=== PATIENT | female | born 1965 | race Hispanic/Latino ===

== ENCOUNTER 2017-06-21 02:57 | Emergency (ER) | payer MEDICAID ==
[~2017-06-21 02:57] MED LIST: DOXY100C2 PO; LANS15CA17 PO
[2017-06-21 03:26] LABS: BASOPHILS % (AUTO) 0.8 % (0.0-5.0); EOSINOPHILS % (AUTO) 1.2 % (0.0-8.0); HEMATOCRIT 31.4 % (36-48); LYMPHOCYTES % (AUTO) 38.2 % (21.0-51.0); MEAN CORPUSCULAR HGB CONC 31.3 g/dL (32.0-36.0); MEAN CORPUSCULAR VOLUME 60.8 fL (79-99); MONOCYTES % (AUTO) 7.8 % (3.0-13.0); NUCLEATED RED BLOOD CELLS 0.1 % (0.0-0.19); PLATELET COUNT (AUTO) 352 K/uL (130-400); RED BLOOD CELL COUNT(AUTO) 5.17 MIL/uL (4.00-5.50); WHITE BLOOD COUNT (AUTO) 8.7 K/uL (4.8-10.8)
[2017-06-21 03:33] LABS: CREATININE 0.8 mg/dL (0.5-1.5); POTASSIUM 3.3 mmol/L (3.5-5.1)
[2017-06-21 03:34] LABS: INR 0.92 (0.85-1.15); PARTIAL THROMBOPLASTIN TIME 24.1 SEC (26.3-35.5); PROTHROMBIN TIME 9.7 SEC (9.6-11.6)
[2017-06-21 03:48] LABS: ALBUMIN 3.7 g/dL (3.5-5.0); BILIRUBIN,TOTAL 0.3 mg/dL (0.2-1.0); CREATINE KINASE MB 0.5 ng/mL (0.5-3.6); TOTAL PROTEIN, SERUM 7.5 g/dL (6.0-8.3)
[2017-06-21] MEDS ORDERED: CLOPIDOGREL BISULFATE 300 MG TAB ONE (04:24)
== END 2017-06-21 04:48 | disposition home or self-care (01) ==
LOC: EDH 02:57
DX: J45.909 Unspecified asthma, uncomplicated (principal); F41.9 Anxiety disorder, unspecified; R07.89 Other chest pain; K21.9 Gastro-esophageal reflux disease without esophagitis; Z88.6 Allergy status to analgesic agent
CPT/HCPCS: 36415; 71045; 80053; 82550; 82553; 83874; 84484; 85025; 85610; 85730; 93005

== ENCOUNTER 2017-07-15 06:43 | Emergency (ER) | payer MEDICAID ==
[2017-07-15 07:37] LABS: RAPID GROUP A STREP NEGATIVE (NEGATIVE)
[2017-07-15] MEDS ORDERED: IPRATROPIUM/ALBUTEROL SULFATE 3 ML SOLUTION IH ONE (07:39)
== END 2017-07-15 08:21 | disposition home or self-care (01) ==
LOC: EDH 06:43
DX: J03.90 Acute tonsillitis, unspecified (principal); J20.9 Acute bronchitis, unspecified; K21.9 Gastro-esophageal reflux disease without esophagitis; J45.909 Unspecified asthma, uncomplicated; Z88.6 Allergy status to analgesic agent; Z87.891 Personal history of nicotine dependence
CPT/HCPCS: 87804; 87880; 94640

== ENCOUNTER 2017-07-29 06:39 | Emergency (ER) | payer MEDICAID ==
[2017-07-29 07:07] LABS: BASOPHILS % (AUTO) 0.5 % (0.0-5.0); EOSINOPHILS % (AUTO) 0.7 % (0.0-8.0); HEMATOCRIT 29.2 % (36-48); LYMPHOCYTES % (AUTO) 34.4 % (21.0-51.0); MEAN CORPUSCULAR HEMOGLOBIN 18.2 pg (27.0-33.0); MEAN CORPUSCULAR VOLUME 58.7 fL (79-99); MONOCYTES % (AUTO) 6.7 % (3.0-13.0); NEUTROPHILS % (AUTO) 57.7 % (40.0-77.0); PLATELET COUNT (AUTO) 427 K/uL (130-400); RED BLOOD CELL COUNT(AUTO) 4.98 MIL/uL (4.00-5.50); RED CELL DISTRIBUTION WIDTH 18.3 % (11.0-15.5); WHITE BLOOD COUNT (AUTO) 10.4 K/uL (4.8-10.8)
[2017-07-29 07:17] LABS: CREATININE 0.7 mg/dL (0.5-1.5); POTASSIUM 3.4 mmol/L (3.5-5.1)
[2017-07-29 07:25] LABS: ALBUMIN 3.4 g/dL (3.5-5.0); BILIRUBIN,TOTAL 0.3 mg/dL (0.2-1.0); TOTAL PROTEIN, SERUM 6.7 g/dL (6.0-8.3)
[2017-07-29] MEDS ORDERED: BENZONATATE 100 MG CAPSULE PO ONE (07:26)
[2017-07-29] MEDS ORDERED: METHYLPREDNISOLONE SOD SUCC 40MG/ML 1ML ONE (07:26)
[2017-07-29] MEDS ORDERED: IPRATROPIUM/ALBUTEROL SULFATE 3 ML SOLUTION IH ONE (07:31)
[2017-07-29 07:36] LABS: RAPID GROUP A STREP NEGATIVE (NEGATIVE)
== END 2017-07-29 08:34 | disposition home or self-care (01) ==
LOC: EDH 06:39
DX: J20.9 Acute bronchitis, unspecified (principal); J45.30 Mild persistent asthma, uncomplicated; K21.9 Gastro-esophageal reflux disease without esophagitis; Z88.6 Allergy status to analgesic agent; Z87.891 Personal history of nicotine dependence
CPT/HCPCS: 36415; 71045; 80053; 85025; 87804 ×2; 87880; 94640; 96372; 99285; J2920

== ENCOUNTER 2017-08-17 19:54 | Emergency (ER) | payer MEDICAID ==
[2017-08-17] MEDS ORDERED: IPRATROPIUM/ALBUTEROL SULFATE 3 ML SOLUTION IH ONE (20:17)
== END 2017-08-17 21:51 | disposition home or self-care (01) ==
LOC: EDH 19:54
DX: J45.909 Unspecified asthma, uncomplicated (principal); R03.0 Elevated blood-pressure reading, without diagnosis of hypertension; K21.9 Gastro-esophageal reflux disease without esophagitis; Z88.6 Allergy status to analgesic agent; Z79.899 Other long term (current) drug therapy
CPT/HCPCS: 94640

== ENCOUNTER 2017-09-15 02:46 | Emergency (ER) | payer MEDICAID ==
[2017-09-15] MEDS ORDERED: IPRATROPIUM/ALBUTEROL SULFATE 3 ML SOLUTION IH ONE (03:10)
[2017-09-15 03:23] LABS: BASOPHILS % (AUTO) 0.7 % (0.0-5.0); EOSINOPHILS % (AUTO) 0.6 % (0.0-8.0); LYMPHOCYTES % (AUTO) 31.6 % (21.0-51.0); MEAN CORPUSCULAR HEMOGLOBIN 20.3 pg (27.0-33.0); MEAN CORPUSCULAR HGB CONC 32.1 g/dL (32.0-36.0); MEAN CORPUSCULAR VOLUME 63.1 fL (79-99); MONOCYTES % (AUTO) 5.5 % (3.0-13.0); NEUTROPHILS % (AUTO) 61.6 % (40.0-77.0); PLATELET COUNT (AUTO) 352 K/uL (130-400); RED BLOOD CELL COUNT(AUTO) 5.07 MIL/uL (4.00-5.50); RED CELL DISTRIBUTION WIDTH 23.6 % (11.0-15.5); WHITE BLOOD COUNT (AUTO) 9.8 K/uL (4.8-10.8)
[2017-09-15 03:41] LABS: RAPID GROUP A STREP NEGATIVE (NEGATIVE)
[2017-09-15 03:42] LABS: CREATININE 0.8 mg/dL (0.5-1.5); POTASSIUM 3.6 mmol/L (3.5-5.1)
[2017-09-15 03:47] LABS: ALBUMIN 3.3 g/dL (3.5-5.0); BILIRUBIN,TOTAL 0.3 mg/dL (0.2-1.0); TOTAL PROTEIN, SERUM 6.6 g/dL (6.0-8.3)
[2017-09-15 03:51] LABS: B-TYPE NATRIURETIC PEPTIDE 50 pg/mL (0-100)
== END 2017-09-15 05:03 | disposition home or self-care (01) ==
LOC: EDH 02:46
DX: R06.00 Dyspnea, unspecified (principal); J02.9 Acute pharyngitis, unspecified; J45.909 Unspecified asthma, uncomplicated; K21.9 Gastro-esophageal reflux disease without esophagitis; Z88.6 Allergy status to analgesic agent
CPT/HCPCS: 36415; 71045; 80053; 82550; 83880; 84484; 85025; 87804; 87880; 93005; 94640

== ENCOUNTER 2017-10-29 10:39 | Observation (INO) | payer MEDICAID ==
[~2017-10-29] VITALS: Ht 165.1 cm; Wt 97.9 kg
[2017-10-29 12:03] LABS: BASOPHILS % (AUTO) 0.3 % (0.0-5.0); HEMATOCRIT 32.9 % (36-48); LYMPHOCYTES % (AUTO) 10.5 % (21.0-51.0); MEAN CORPUSCULAR HEMOGLOBIN 20.3 pg (27.0-33.0); MEAN CORPUSCULAR HGB CONC 31.6 g/dL (32.0-36.0); MEAN CORPUSCULAR VOLUME 64.3 fL (79-99); MONOCYTES % (AUTO) 1.7 % (3.0-13.0); NEUTROPHILS % (AUTO) 87.5 % (40.0-77.0); PLATELET COUNT (AUTO) 448 K/uL (130-400); RED BLOOD CELL COUNT(AUTO) 5.11 MIL/uL (4.00-5.50); RED CELL DISTRIBUTION WIDTH 21.3 % (11.0-15.5); WHITE BLOOD COUNT (AUTO) 9.5 K/uL (4.8-10.8)
[2017-10-29 12:10] LABS: CREATININE 0.9 mg/dL (0.5-1.5); POTASSIUM 3.6 mmol/L (3.5-5.1)
[2017-10-29 12:15] LABS: ALBUMIN 3.7 g/dL (3.5-5.0); BILIRUBIN,TOTAL 0.4 mg/dL (0.2-1.0); TOTAL PROTEIN, SERUM 7.3 g/dL (6.0-8.3)
[2017-10-29 12:25] LABS: RAPID GROUP A STREP NEGATIVE (NEGATIVE)
[2017-10-29] MEDS ORDERED: IPRATROPIUM/ALBUTEROL SULFATE 3 ML SOLUTION IH ONE ×2 (12:39→17:28)
[2017-10-29] MEDS ORDERED: COMPOUND IV REFRIGERATED 1 EACH IVSOLN MISC PRN (17:45)
[2017-10-29] MEDS: IPRATROPIUM/ALBUTEROL SULFATE 3 ML SOLUTION IH SCH (17:47)
[2017-10-29] MEDS: AZITHROMYCIN 250 MG in SODIUM CHLORIDE 0.9% 100 ML IV SCH (18:00)
[2017-10-29] MEDS: METHYLPREDNISOLONE SOD SUCC 125MG/2ML VIAL IVP SCH (18:00)
[2017-10-29] MEDS ORDERED: METHYLPREDNISOLONE SOD SUCC 125MG/2ML VIAL ONE (19:05)
[2017-10-29] MEDS ORDERED: ACETAMINOPHEN 325 MG TAB PO PRN (20:30)
[2017-10-29 20:35] VITALS: BP 143/85
[2017-10-29] MEDS: FAMOTIDINE 20MG TAB 20 MG TAB PO SCH (21:00)
[2017-10-29] MEDS ORDERED: FLUO10TA3 PO (21:30)
[2017-10-29] MEDS ORDERED: MONT10TA21 PO (21:30)
[2017-10-29] MEDS ORDERED: ALBU8.5H8 IH (21:30)
[2017-10-29] MEDS ORDERED: OMEP40CA37 PO (21:30)
[2017-10-29] MEDS ORDERED: FLUT44HFA IH (21:30)
[2017-10-29] MEDS: LORATADINE/PSEUDOEPHED 5/120 MG 1 EACH TAB.SR.12H PO SCH (22:53)
[2017-10-29 23:23] VITALS: BP 144/74
[2017-10-30] MEDS: IPRATROPIUM/ALBUTEROL SULFATE 3 ML SOLUTION IH SCH ×4 (00:36→18:17)
[2017-10-30 03:00] VITALS: BP 144/74
[2017-10-30] MEDS ORDERED: LORAZEPAM 2 MG/ML 1 ML VIAL ONE (03:19)
[2017-10-30] MEDS ORDERED: LORAZEPAM 2 MG/ML 1 ML VIAL IVP PRN (03:30)
[2017-10-30 04:47] LABS: HEMATOCRIT 34.1 % (36-48); MEAN CORPUSCULAR HEMOGLOBIN 20.1 pg (27.0-33.0); MEAN CORPUSCULAR HGB CONC 31.3 g/dL (32.0-36.0); MEAN CORPUSCULAR VOLUME 64.3 fL (79-99); PLATELET COUNT (AUTO) 512 K/uL (130-400); RED CELL DISTRIBUTION WIDTH 21.2 % (11.0-15.5); WHITE BLOOD COUNT (AUTO) 10.7 K/uL (4.8-10.8)
[2017-10-30 04:55] LABS: CREATININE 0.9 mg/dL (0.5-1.5); POTASSIUM 4.2 mmol/L (3.5-5.1)
[2017-10-30] MEDS: METHYLPREDNISOLONE SOD SUCC 125MG/2ML VIAL IVP SCH ×2 (06:33→17:28)
[2017-10-30 07:30] VITALS: BP 139/77
[2017-10-30] MEDS: FAMOTIDINE 20MG TAB 20 MG TAB PO SCH ×2 (09:16→21:32)
[2017-10-30] MEDS: LORATADINE/PSEUDOEPHED 5/120 MG 1 EACH TAB.SR.12H PO SCH ×2 (09:17→21:32)
[2017-10-30 11:01] VITALS: BP 158/90
[2017-10-30 16:08] VITALS: BP 107/57
[2017-10-30] MEDS: AZITHROMYCIN 250 MG in SODIUM CHLORIDE 0.9% 100 ML IV SCH (17:28)
[2017-10-30] MEDS: BUDESONIDE 0.5 MG/2 ML INH IH SCH (18:17)
[2017-10-30 20:00] VITALS: BP 113/61
[2017-10-30] MEDS: ALPRAZOLAM 0.25 MG TABLET PO SCH (21:32)
[2017-10-30 23:47] VITALS: BP 138/83
[2017-10-31] MEDS: IPRATROPIUM/ALBUTEROL SULFATE 3 ML SOLUTION IH SCH ×3 (00:02→11:06)
[2017-10-31 04:00] VITALS: BP 150/94
[2017-10-31 04:55] LABS: HEMATOCRIT 32.2 % (36-48); MEAN CORPUSCULAR HEMOGLOBIN 20.5 pg (27.0-33.0); MEAN CORPUSCULAR VOLUME 64.1 fL (79-99); PLATELET COUNT (AUTO) 467 K/uL (130-400); RED BLOOD CELL COUNT(AUTO) 5.03 MIL/uL (4.00-5.50)
[2017-10-31 05:06] LABS: CREATININE 0.8 mg/dL (0.5-1.5); POTASSIUM 4.2 mmol/L (3.5-5.1)
[2017-10-31] MEDS: METHYLPREDNISOLONE SOD SUCC 125MG/2ML VIAL IVP SCH (05:10)
[2017-10-31] MEDS: BUDESONIDE 0.5 MG/2 ML INH IH SCH (06:19)
[2017-10-31 07:00] VITALS: BP 124/73
[2017-10-31] MEDS: LORATADINE/PSEUDOEPHED 5/120 MG 1 EACH TAB.SR.12H PO SCH (08:55)
[2017-10-31] MEDS: FAMOTIDINE 20MG TAB 20 MG TAB PO SCH (08:55)
[2017-10-31] MEDS: ALPRAZOLAM 0.25 MG TABLET PO SCH (08:55)
[2017-10-31 11:00] VITALS: BP 140/78
[2017-10-31] MEDS ORDERED: FLUT44HFA IH (15:10)
[2017-10-31] MEDS ORDERED: P-EP-94 PO (15:10)
[2017-10-31] MEDS ORDERED: AZIT250T9 PO (15:10)
[2017-10-31] MEDS ORDERED: ALPR0.255 PO (15:10)
[2017-10-31] MEDS ORDERED: PRED20TA3 PO (15:10)
[2017-10-31 15:49] VITALS: BP 134/60
== END 2017-10-31 19:30 | disposition home or self-care (01) ==
LOC: EDH 10:39 → INTOOBSV 10:40 → EDHIP 10:40 → 3BH 20:14
PROVIDERS: ADMIT Internal Medicine Nephrology; ATTEND Internal Medicine Nephrology
DX: J45.902 Unspecified asthma with status asthmaticus (principal); K21.9 Gastro-esophageal reflux disease without esophagitis; Z87.891 Personal history of nicotine dependence; Z88.8 Allergy status to other drugs, medicaments and biological substances; Z79.899 Other long term (current) drug therapy
CPT/HCPCS: 36415 ×3; 71046; 80048 ×2; 80053; 85025; 85027 ×2; 85378; 87633; 87804 ×2; 87880; 93005 ×2; 94640 ×13; 94664; 96365; 96375; 96376 ×2; 99284; 99291; A4510; G0378 ×57; J0456 ×3; J2060 ×2; J2930 ×4

== ENCOUNTER 2017-12-19 17:37 | Emergency (ER) | payer MEDICAID ==
[~2017-12-19 17:37] MED LIST changes: +ALBU8.5H8 IH; +ALPR0.255 PO; +AZIT250T9 PO; -DOXY100C2 PO; +FLUO10TA3 PO; +FLUT44HFA IH; +OMEP40CA37 PO; +P-EP-94 PO; +PRED20TA3 PO
== END 2017-12-19 18:15 | disposition home or self-care (01) ==
LOC: EDH 17:37
DX: L50.0 Allergic urticaria (principal); J45.909 Unspecified asthma, uncomplicated; K21.9 Gastro-esophageal reflux disease without esophagitis; Z88.6 Allergy status to analgesic agent; Z87.891 Personal history of nicotine dependence; Z98.890 Other specified postprocedural states
CPT/HCPCS: 99282

== ENCOUNTER 2018-04-27 20:30 | Emergency (ER) | payer MEDICAID | END 2018-04-27 21:33 | disposition home or self-care (01) | LOC: EDH 20:30 | DX: H92.02 Otalgia, left ear (principal); J45.909 Unspecified asthma, uncomplicated; K21.9 Gastro-esophageal reflux disease without esophagitis; F41.9 Anxiety disorder, unspecified; Z90.89 Acquired absence of other organs; Z98.890 Other specified postprocedural states; Z88.6 Allergy status to analgesic agent; Z87.891 Personal history of nicotine dependence ==

== ENCOUNTER 2018-05-13 19:45 | Emergency (ER) | payer MEDICAID | END 2018-05-13 20:13 | disposition home or self-care (01) | LOC: EDH 19:45 | DX: J20.9 Acute bronchitis, unspecified (principal); K21.9 Gastro-esophageal reflux disease without esophagitis; J45.909 Unspecified asthma, uncomplicated; F41.9 Anxiety disorder, unspecified; Z88.6 Allergy status to analgesic agent; Z98.890 Other specified postprocedural states; Z87.891 Personal history of nicotine dependence ==

== ENCOUNTER 2018-09-17 16:57 | Emergency (ER) | payer MEDICAID ==
[2018-09-17 17:41] LABS: BASOPHILS % (AUTO) 0.4 % (0.0-5.0); EOSINOPHILS % (AUTO) 0.1 % (0.0-8.0); LYMPHOCYTES % (AUTO) 12.4 % (21.0-51.0); MEAN CORPUSCULAR HEMOGLOBIN 20.3 pg (27.0-33.0); MEAN CORPUSCULAR HGB CONC 31.2 g/dL (32.0-36.0); MEAN CORPUSCULAR VOLUME 65.1 fL (79-99); MONOCYTES % (AUTO) 4.4 % (3.0-13.0); NEUTROPHILS % (AUTO) 82.7 % (40.0-77.0); PLATELET COUNT (AUTO) 372 K/uL (130-400); RED BLOOD CELL COUNT(AUTO) 5.22 MIL/uL (4.00-5.50); RED CELL DISTRIBUTION WIDTH 19.2 % (11.0-15.5); WHITE BLOOD COUNT (AUTO) 11.1 K/uL (4.8-10.8)
[2018-09-17 17:44] LABS: CREATININE 0.8 mg/dL (0.5-1.5); POTASSIUM 4.1 mmol/L (3.5-5.1)
[2018-09-17] MEDS ORDERED: DEXAMETHASONE SOD PHOSPHATE 10MG/ML 1ML VIAL ONE (17:44)
[2018-09-17] MEDS ORDERED: SODIUM CHLORIDE 0.9% 1000ML 1,000 ML IV ONE (17:45)
[2018-09-17] MEDS ORDERED: IPRATROPIUM/ALBUTEROL SULFATE 3 ML SOLUTION IH ONE (18:03)
== END 2018-09-17 20:05 | disposition home or self-care (01) ==
LOC: EDH 16:57
DX: J45.901 Unspecified asthma with (acute) exacerbation (principal); R07.89 Other chest pain; K21.9 Gastro-esophageal reflux disease without esophagitis; F41.9 Anxiety disorder, unspecified; Z87.891 Personal history of nicotine dependence; Z88.6 Allergy status to analgesic agent; Z98.890 Other specified postprocedural states
CPT/HCPCS: 36415; 71045; 80048; 84484; 85025; 93005; 94640; 96374; 99285; J1100; J7030

== ENCOUNTER 2018-09-19 23:05 | Emergency (ER) | payer MEDICAID ==
[2018-09-20] MEDS ORDERED: LORAZEPAM 1 MG TABLET ONE (01:21)
== END 2018-09-20 01:30 | disposition home or self-care (01) ==
LOC: EDH 23:05
DX: F41.9 Anxiety disorder, unspecified (principal); R07.0 Pain in throat; J45.909 Unspecified asthma, uncomplicated; K21.9 Gastro-esophageal reflux disease without esophagitis; Z88.6 Allergy status to analgesic agent; Z98.890 Other specified postprocedural states
CPT/HCPCS: 87880; 93005

== ENCOUNTER 2020-07-31 23:21 | Emergency (ER) | payer MEDICAID ==
[~2020-07-31 23:21] MED LIST changes: +OMEP40CA13 PO; -OMEP40CA37 PO
[2020-07-31] MEDS ORDERED: SODIUM CHLORIDE 0.9% 500ML 500 ML IV ONE (23:59)
[2020-08-01] MEDS ORDERED: PROCHLORPERAZINE EDISYLATE 10 MG/2 ML VIAL ONE
[2020-08-01] MEDS ORDERED: KETOROLAC TROMETHAMINE 15MG/ML ONE
[2020-08-01 00:01] LABS: EOSINOPHILS % (AUTO) 0.1 % (0.0-8.0); HEMATOCRIT 39.9 % (36-48); LYMPHOCYTES % (AUTO) 30.8 % (21.0-51.0); MEAN CORPUSCULAR HGB CONC 30.3 g/dL (32.0-36.0); MEAN CORPUSCULAR VOLUME 72.4 fL (79-99); MONOCYTES % (AUTO) 6.7 % (3.0-13.0); NEUTROPHILS % (AUTO) 61.1 % (40.0-77.0); PLATELET COUNT (AUTO) 393 K/uL (130-400); RED BLOOD CELL COUNT(AUTO) 5.51 MIL/uL (4.00-5.50); WHITE BLOOD COUNT (AUTO) 8.6 K/uL (4.8-10.8)
[2020-08-01 00:11] LABS: CREATININE 0.9 mg/dL (0.5-1.5); POTASSIUM 3.9 mmol/L (3.5-5.1)
[2020-08-01 00:16] LABS: ALBUMIN 4.1 g/dL (3.5-5.0); BILIRUBIN,TOTAL 0.4 mg/dL (0.2-1.0); TOTAL PROTEIN, SERUM 8.3 g/dL (6.0-8.3)
[2020-08-01 00:41] LABS: APPEARANCE,URINE Clear (CLEAR); BILIRUBIN,URINE Negative (NEGATIVE); COLOR,URINE Yellow (YELLOW); GLUCOSE, URINE (UA) Negative (NEGATIVE); KETONES,URINE Negative (NEGATIVE); LEUKOCYTE ESTERASE ,URINE Negative (NEGATIVE); NITRATE,URINE Negative (NEGATIVE); OCCULT BLOOD,URINE Negative (NEGATIVE); PH,URINE 5.5 (5.0-8.0); PROTEIN,URINE Negative (NEGATIVE); UROBILINOGEN,URINE 0.2 mg/dL (0.2-1.0)
[2020-08-01 00:59] LABS: AMPHET/METH SCREEN,URINE NEGATIVE (NEGATIVE); BARBITURATE SCREEN, URINE NEGATIVE (NEGATIVE); BENZODIAZEPINES SCREEN,URINE NEGATIVE (NEGATIVE); CANNABINOID SCREEN,URINE NEGATIVE (NEGATIVE); COCAINE SCREEN,URINE POSITIVE (NEGATIVE); OPIATE SCREEN,URINE NEGATIVE (NEGATIVE); PHENCYCLIDINE SCREEN,URINE NEGATIVE (NEGATIVE)
== END 2020-08-01 01:33 | disposition home or self-care (01) ==
LOC: EDH 23:21
DX: F41.1 Generalized anxiety disorder (principal); F10.10 Alcohol abuse, uncomplicated; K21.9 Gastro-esophageal reflux disease without esophagitis; F41.9 Anxiety disorder, unspecified; J45.909 Unspecified asthma, uncomplicated; Z98.890 Other specified postprocedural states; Z88.6 Allergy status to analgesic agent; Y90.7 Blood alcohol level of 200-239 mg/100 ml
CPT/HCPCS: 36415; 80053; 80305; 81003; 84484; 85025; 96374; 96375; 99284; J0780; J1885; J7040

== ENCOUNTER 2024-01-28 19:46 | Emergency (ER) | payer MEDICAID ==
[~2024-01-28] VITALS: Ht 165.1 cm; Wt 114.8 kg
[~2024-01-28 19:46] MED LIST changes: -FLUO10TA3 PO; +FLUO10TA35 PO; -OMEP40CA13 PO; +OMEP40CA21 PO
--- NOTE | 2024-01-28 19:52 | NUR ---
UA CUP PROVIDED
[2024-01-28 20:03] LABS: APPEARANCE,URINE CLEAR (CLEAR); BILIRUBIN,URINE NEGATIVE (NEGATIVE); COLOR,URINE YELLOW (YELLOW); GLUCOSE, URINE (UA) NEGATIVE (NEGATIVE); KETONES,URINE NEGATIVE (NEGATIVE); LEUKOCYTE ESTERASE ,URINE NEGATIVE Leu/uL (NEGATIVE); NITRATE,URINE NEGATIVE (NEGATIVE); OCCULT BLOOD,URINE NEGATIVE (NEGATIVE); PROTEIN,URINE 10 mg/dL (NEGATIVE)
[2024-01-28 20:04] LABS: ADD UA MICROSCOPIC YES; MUCUS,URINE RARE LPF (None Seen); SQUAMOUS EPITHELIAL CELL,UR FEW /HPF (0-2)
[2024-01-28] MEDS ORDERED: HYDR28GE5 TP (20:29)
--- NOTE | 2024-01-28 20:30 | ERN ---
ED Note History of Present Illness Stated Complaint: ABSCESS/HEMORRHOIDS Chief Complaint: Hemorrhoids Time Seen by MD: 20:09 Dictation: 58-year-old female with past medical history of high blood pressure presents with rectal pain after having bowel movement earlier today. Patient also has a known history of hemorrhoids. Patient states that she has been seeing a specialist since November and her pain has been controlled, but today it has gotten acutely worse. Patient denies fevers, nausea, vomiting diaphoresis, syncope, presyncope, focal neurological deficits, difficulty bowel movement Allergies: Coded Allergies: aspirin (Unverified Allergy, Unknown, 04/11/15) ibuprofen (Unverified Allergy, Unknown, 04/11/15) Home Meds Active Scripts Azithromycin (Azithromycin) 250 Mg Tablet, 250 MG PO DAILY for 4 Days, #4 TAB Prov:ROEL MILLER [employer] 10/31/17 Prednisone (Prednisone) 20 Mg Tablet, 40 MG PO DAILY for 5 Days, #5 TAB Prov:ROEL MILLER NP 10/31/17 Loratadine/Pseudoephedrine (Claritin-D 12 Hour Tablet) 1 Each Tab.er.12h, 1 EACH PO BID for 7 Days, #14 TAB Prov:ROEL MILLER NP 10/31/17 Alprazolam (Alprazolam) 0.25 Mg Tablet, 0.25 MG PO BID PRN for ANXIETY/AGITATION for 4 Days, #8 TAB Prov:ROEL MILLER NP 10/31/17 Fluticasone Propionate (Flovent Hfa) 10.6 Gm Aer.w.adap, 2 PUFF IH BID for 14 Days, #1 INHALER Prov:ROEL MILLER NP 10/31/17 Reported Medications Albuterol Sulfate (Proair Hfa) 8.5 Gm Hfa.aer.ad, 1 PUFF IH QID 10/29/17 Fluoxetine HCl (Fluoxetine HCl) 10 Mg Tablet, 10 MG PO DAILY, TAB 10/29/17 Omeprazole (Omeprazole) 40 Mg Capsule., 40 MG PO DAILYBKFST, CAP 10/29/17 Lansoprazole (Lansoprazole) 15 Mg Capsule., 15 MG PO DAILYBKFST, CAP 04/11/15 Past Medical History Past Medical History: Hypertension Surgical History: Review of System Dictation See HPI Initial Vital Sign VS Vital Signs Date Time Temp Pulse Resp B/P (MAP) Pulse Ox O2 Delivery O2 Flow Rate FiO2 01/28/24 19:48 98.2 84 16 163/85 98 Room Air 01/28/24 20:13 0 21 Physical Exam Dictation General: Elevated BMI, uncomfortable appearing : Non thrombosed hemorrhoid at 3:0.clock., otherwise normal visual inspection Results (Laboratory/Radiology) Laboratory/Radiology Laboratory Tests Test 01/28/24 19:53 Urine Color YELLOW (YELLOW) Urine Appearance CLEAR (CLEAR) Urine pH 6.0 (5.0-8.0) Urine Specific [place] 1.031 (1.001-1.031) Urine Protein 10 mg/dL (NEGATIVE) H Urine Glucose (UA) NEGATIVE mg/dL (NEGATIVE) Urine Ketones NEGATIVE mg/dL (NEGATIVE) Urine Occult Blood NEGATIVE (NEGATIVE) Urine Nitrate NEGATIVE (NEGATIVE) Urine Bilirubin NEGATIVE mg/dL (NEGATIVE) Urine Urobilinogen 2.0 mg/dL (0.2-1.0) H Urine Leukocyte Esterase NEGATIVE Sergey/uL Urine RBC 2-5 /HPF (0-1) H Urine WBC 2-5 /HPF (0-1) H Urine Squamous Epithelial Cells FEW /HPF (0-2) Urine Bacteria None /HPF (None Seen) ED Course ED Course Orders Procedure Category Date Status Time Urinalysis Profile LAB 01/28/24 Complete 19:53 Vital Signs Date Time Temp Pulse Resp B/P (MAP) Pulse Ox O2 Delivery O2 Flow Rate FiO2 01/28/24 20:13 98.2 84 16 163/85 98 Room Air* 0 21 01/28/24 19:48 98.2 84 16 163/85 98 Room Air Medical Decision Making MDM DDX: Thrombosed hemorrhoid versus external hemorrhoid versus internal hemorrhoid versus perirectal abscess versus perirectal abscess # INTERPRETATION AND DISCUSSION: Considered CT abdomen and pelvis to assess for perianal versus perirectal abscess. Patient's physical exam is consistent with hemorrhoids. No indication for CT at this time. Low clinical suspicion for abscess. Abscess can not be excise because there was no thrombosis. We will counseled patient on Sitz bath and hydrocortisone cream. #Reevaluation: Upon re-evaluation, patient's physical exam is unchanged. Discussed ED workup with patient. Patient will return to a specialist to follow up primary care physician. Return precautions given. Invited and answered all questions prior to discharge. Patient agreed with plan DX & DISP Disposition: Discharge Departure Impression: Primary Impression: Rectal pain Additional Impression: Acute hemorrhoid Condition: Stable Scripts Hydrocortisone (Cortizone 10) 1 % Gel..gram. 28 GM TP Q6HPRN PRN for PAIN for 5 Days, #15 TUBE Prov: ELINA YOON DO 01/28/24 Additional Instructions: Please use Tylenol and ibuprofen in addition to medication prescribed. Pain will take several days to subside. Please follow up with specialist next available appointment. Please return to emergency department immediately for go fevers, nausea, vomiting, and inability to have a bowel movement Referrals: GIGI HANEY MD (PCP) ELINA YOON DO Jan 28, 2024 20:30
[2024-01-28 20:58] VITALS: BP 147/77; PULSE 81; RESP 16; TEMP 98.2; O2SAT 98
[2024-03-10] MEDS ORDERED: MONT-39 PO (04:48)
[2024-03-10] MEDS ORDERED: DIPH25CA85 PO (04:48)
[2024-03-10] MEDS ORDERED: FERS325 PO (04:48)
[2024-03-10] MEDS ORDERED: FLUO20TA29 PO (04:48)
[2024-03-10] MEDS ORDERED: BENZ200C53 PO (04:48)
[2024-03-10] MEDS ORDERED: CETI10TA87 PO (04:48)
[2024-03-10] MEDS ORDERED: LACT1CAP65 PO (04:48)
[2024-03-10] MEDS ORDERED: ALPR-410 PO (04:48)
[2024-03-10] MEDS ORDERED: LISI10TA24 PO (04:48)
[2024-03-10] MEDS ORDERED: BUSP10TA3 PO (17:48)
[2024-03-12] MEDS ORDERED: DOXY-252 PO (17:20)
== END 2024-01-28 20:59 | disposition home or self-care (01) ==
LOC: EDH 19:46
DX: K64.9 Unspecified hemorrhoids (principal); K62.89 Other specified diseases of anus and rectum; I10 Essential (primary) hypertension; Z79.51 Long term (current) use of inhaled steroids; Z79.52 Long term (current) use of systemic steroids; Z79.899 Other long term (current) drug therapy; Z88.6 Allergy status to analgesic agent; Z98.890 Other specified postprocedural states
CPT/HCPCS: 81001